=== PATIENT | female | born 1960 | race Caucasian/White ===

== ENCOUNTER 2018-07-09 13:31 | Emergency (ER) | payer OTHER ==
[~2018-07-09] VITALS: Ht 157.4 cm; Wt 93.9 kg
[~2018-07-09 13:31] MED LIST: AUGMENTIN 875 M1 TAB PO; DIOVAN320 MG PO; DO NOT PROFILE T1 EA; FISH OIL500 M1 PO; LEVOTHYROXIN0.125 MG; Metformin Hydr500 MG PO; PEN-VEE K500 MG PO; PREDNICOT20 MG PO; PROVENTIL0.09 MG/AC IH; SIMVASTATIN40 MG PO; TOBRADEX 0.1%-0.5 ML OPH; TYLENOL W/CODEI1 TA2 PO; VIBRAMYCIN100 MG PO; VITAMIN D1000 IU PO
== END 2018-07-09 15:38 | disposition home or self-care (01) ==
LOC: ED 13:31
DX: S60.051A Contusion of right little finger without damage to nail, initial encounter (principal); Z88.1 Allergy status to other antibiotic agents; Z88.6 Allergy status to analgesic agent; Z79.899 Other long term (current) drug therapy; W23.0XXA Caught, crushed, jammed, or pinched between moving objects, initial encounter; Y93.89 Activity, other specified; Y92.89 Other specified places as the place of occurrence of the external cause; Y99.8 Other external cause status